=== PATIENT | male | born 1955 | race Caucasian/White ===

== ENCOUNTER 2019-12-03 10:01 | Outpatient (CLI) | payer OTHER, SELFPAY ==
--- NOTE | ~2019-12-03 | CT_ITS ---
EXAMINATION:CT lung screening DATE: 12/03/2019 10:25 INDICATION: Personal history of nicotine dependence. Smoker who quit 13 years ago with 37 pack year h istory. TECHNIQUE: Computed tomography (CT) of the chest was performed without intravenous contrast. Automate d exposure control and iterative reconstruction technique were employed. The dose-length product (DLP ) was 164.22 mGy-cm. COMPARISON: Chest CT 10/16/2018 FINDINGS: There is mild emphysema. There are scattered areas of mild scarring involving all lobes. Th ere is a 3 mm nodule at left major fissure without change. No bronchiectasis or honeycombing. No pleu ral effusion. The heart size is normal. There are coronary artery calcifications. No pericardial effu candice. Calcifications in the liver and spleen are consistent with old granulomatous disease. There is a gallstone in the gallbladder, which is normal in size. Partially visualized is a 7.2 cm cyst in lef t kidney. There is severe cervical spondylosis and moderate thoracic spondylosis. There is mild chron ic anterior wedging of multiple lower thoracic vertebral bodies. IMPRESSION: 1. Lung-RADS category 2: Benign appearance or behavior. Continue annual screening with noncontrast lo w-dose chest CT in 12 months. Reviewed, dictated and finalized at location A. IMPRESSION: 1. Lung-RADS category 2: Benign appearance or behavior. Continue annual screeni ng with noncontrast low-dose chest CT in 12 months.
== END 2019-12-03 10:02 | disposition home or self-care (01) ==
LOC: ANHIMG 10:04
PROVIDERS: PCP Emergency Medicine; Visit Provider Emergency Medicine
DX: Z12.2 Encounter for screening for malignant neoplasm of respiratory organs (principal); Z87.891 Personal history of nicotine dependence
CPT/HCPCS: G0297

== ENCOUNTER 2021-01-12 16:05 | Outpatient (CLI) | payer OTHER, SELFPAY ==
--- NOTE | ~2021-01-12 | CT_ITS ---
EXAMINATION: CT lung screening DATE: 01/12/2021 16:34 INDICATION: Personal history of nicotine dependence, prior smoker with 37 pack year history TECHNIQUE: Computed tomography (CT) of the chest was performed without intravenous contrast. The dose -length product (DLP) was 139.46 mGy-cm. Automated exposure control and iterative reconstruction tech [employer] C were employed. COMPARISON: 12/03/2019 FINDINGS: There is mild emphysema. Again noted is a stable triangle shaped nodule measuring 3 mm in a ssociation with the left major fissure, most consistent with a fissural lymph node. No new pulmonary nodules are identified. There are areas of scarring and atelectasis throughout the lungs. No new foca l airspace opacity is present. There is no pleural effusion or pneumothorax. No pathologically enlarg ed thoracic lymph nodes are identified. The heart size is normal. Calcified coronary artery atheroscl erosis is noted. Stones are present in the nondistended gallbladder. There is a partially imaged cyst of the left kidney. Punctate calcifications in an otherwise normal spleen likely represent healed gr anulomatous disease. There is moderate thoracic spondylosis. IMPRESSION: 1. Lung-RADS category 2: Benign appearance or behavior. Continue annual screening with noncontrast lo w-dose chest CT in 12 months. Reviewed, dictated and finalized at location B. IMPRESSION: 1. Lung-RADS category 2: Benign appearance or behavior. Continue annual screeni ng with noncontrast low-dose chest CT in 12 months.
== END 2021-01-12 16:06 | disposition home or self-care (01) ==
LOC: ANHIMG 16:07
PROVIDERS: PCP Emergency Medicine; Visit Provider Emergency Medicine
DX: Z12.2 Encounter for screening for malignant neoplasm of respiratory organs (principal); Z87.891 Personal history of nicotine dependence
CPT/HCPCS: 71271

== ENCOUNTER 2021-03-22 01:46 | Day surgery (SDC) | payer OTHER, SELFPAY ==
[2021-03-10 11:43] VITALS: BMI 27.0
[2021-03-22 06:19] VITALS: BP 109/77; PULSE 73; RESP 18; TEMP 36.2; O2SAT 99
[2021-03-22] MEDS: LACTATED RINGERS 1,000 ML 150 ML IV CONT (06:21)
--- NOTE | 2021-03-22 07:22 | WPDANESEPPF ---
Anes - Initial Pre Proc Eval Procedure: Operation Date: 03/22/21 07:30 Proposed Procedures p Screening Colonoscopy - Hiro Perry MD Date/Time: 03/22/21 07:22 Surgeon: Hiro Perry MD Pre Op Diagnosis: hx of colon polyps Patient Data Age: 65 Gender: M Height: 1.8 m Weight: 91.3 kg Last Vital Signs Temp 97.1 F L 03/22/21 06:19 Pulse 73 03/22/21 06:19 Resp 18 03/22/21 06:19 BP 109/77 03/22/21 06:19 Pulse Ox 99 03/22/21 06:19 Allergies Allergy/AdvReac Type Severity Reaction Status Date / Time iodine Allergy Intermediate Hives Verified 03/22/21 06:18 Home Medications Medication Instructions Recorded Confirmed Type allopurinol 100 mg PO DAILY 03/10/21 03/22/21 History amlodipine 10 mg PO DAILY 03/10/21 03/22/21 History atorvastatin 20 mg PO DAILY 03/10/21 03/22/21 History hydrocodone-acetaminophen 1 tablet PO PRN PRN 03/10/21 03/22/21 History lisinopril 20 mg PO DAILY 03/10/21 03/22/21 History metoprolol tartrate 100 mg PO DAILY 03/10/21 03/22/21 History temazepam 15 mg PO DAILY 03/10/21 03/22/21 History Patient hx anesthesia problems: none Family hx anesthesia problems: none Results Review: All pre-operative results and documents have been reviewed as part of the pre-operative evaluation. [facility] Past Medical History Medical History (Updated 03/22/21 @ 07:16 by Donovan Browning MD) Hypertension Family History Family History (Updated 11/13/18 @ 09:05 by DOCTOR UNKNOWN) Mother Hypertension Sibling Patient's brother is in good health Social History Social History Smoking status: Never smoker Alcohol intake: current Substance use type: does not use Living arrangements: with family Spiritual care concerns: No Anes - Eval Final PreProcedure Day of Procedure 03/22/21 07:22 Patient weight: overweight Heart: regular rate and rhythm Lungs: clear to auscultation Airway: Mallampati scale class II Neurological: alert and oriented Last oral intake: >/= 8 hours ASA classification: II Emergent: no Anesthetic plan: proceed Anesthesia type and monitoring: general GIVS and standard monitoring Results Review: All pre-operative results and documents have been reviewed as part of the pre-operative evaluation. Informed Consent: The patient's anesthetic plan and its attendant risks and benefits were discussed with the patient/family/POA. Questions were solicited and answers provided to the satisfaction of the patient/family/POA.
--- NOTE | 2021-03-22 07:32 | PM.HPGS ---
History of Present Illness History of Present Illness Consent: Risks, benefits, and alternatives have been discussed and questions answered. Patient agrees to proceed with procedure. Chief complaint: hx of colon polyps Narrative: Steven Dennis is a 65 year old male with colon polyps 2017 Review of Systems Constitutional: Constitutional: Denies headache(s) and Denies weakness Eyes: Eyes: Denies blurry vision ENT: Reports Normal hearing present, Denies headache(s) and Denies neck pain Cardiovascular: Cardiovascular: Denies chest pain and Denies dyspnea Respiratory: Respiratory: Denies dyspnea Gastrointestinal: Gastrointestinal: Reports no additional gastrointestinal complaints Genitourinary: Genitourinary: Denies dysuria Musculoskeletal: Musculoskeletal: Denies neck pain Integumentary/Breasts: Skin/Breast: Denies dry skin Neurologic: Reports Normal hearing present, Denies headache(s) and Denies weakness Psychiatric: Psychiatric: Denies anxiety Endocrine: Endocrine: Denies change in body appearance Hematologic/Lymphatic: Hematologic/Lymphatic: Denies easy bleeding Allergic/Immunologic: Allergic/Immunologic: Denies urticaria PMF Past Medical History Medical History (Updated 03/22/21 @ 07:33 by Hiro Perry MD) Adenomatous colon polyp Hypertension Family History Family History (Updated 11/13/18 @ 09:05 by DOCTOR UNKNOWN) Mother Hypertension Sibling Patient's brother is in good health Social History Social History Smoking status: Never smoker Alcohol intake: current Substance use type: does not use Living arrangements: with family Spiritual care concerns: No Meds Home Medications and Allergies Home Medications Medication Instructions Recorded Confirmed Type allopurinol 100 mg PO DAILY 03/10/21 03/22/21 History amlodipine 10 mg PO DAILY 03/10/21 03/22/21 History atorvastatin 20 mg PO DAILY 03/10/21 03/22/21 History hydrocodone-acetaminophen 1 tablet PO PRN PRN 03/10/21 03/22/21 History lisinopril 20 mg PO DAILY 03/10/21 03/22/21 History metoprolol tartrate 100 mg PO DAILY 03/10/21 03/22/21 History temazepam 15 mg PO DAILY 03/10/21 03/22/21 History Allergies Allergy/AdvReac Type Severity Reaction Status Date / Time iodine Allergy Intermediate Hives Verified 03/22/21 06:18 Vital Signs Vital Signs - 24 hr 03/22/21 06:19 Temperature 97.1 F L Pulse Rate 73 Respiratory Rate 18 Blood Pressure 109/77 Pulse Oximetry 99 Exam Const: General: comfortable and no acute distress HENMT: General nose exam: Normal nares present Eyes: General: appearance normal, both eyes and all related structures Neck: Neck: no JVD Resp: Auscultation: clear to auscultation bilaterally Cardio: Rate: regular rate Rhythm: regular rhythm GI: Inspection: non-distended GI Palp: Yes Soft to palpation Skin: General skin exam: normal color Neuro: General: gait normal Speech: normal speech Extrem: General: normal to inspection Psych: Mental Status: mental status grossly normal Assessment and Plan Assessment and plan (1) Adenomatous colon polyp: Code(s): D12.6 - Benign neoplasm of colon, unspecified Status: Acute Assessment and Plan: colonoscopy
[2021-03-22 07:54] VITALS: BP 73/48; PULSE 62; RESP 18; O2SAT 100
[2021-03-22 08:04] VITALS: BP 72/47; PULSE 65; RESP 18; O2SAT 100
[2021-03-22 08:14] VITALS: BP 90/59; PULSE 61; RESP 20; O2SAT 100
[2021-03-22 08:30] VITALS: BP 101/57
== END 2021-03-22 08:33 | disposition home or self-care (01) ==
PROVIDERS: PCP Emergency Medicine; Visit Provider Internal Medicine Gastroenterology
PROC: 0DJD8ZZ Inspection of Lower Intestinal Tract, Via Natural or Artificial Opening Endoscopic (ICD-10-PCS; CPT 45378; principal; 2021-03-22 07:30)
DX: Z12.11 Encounter for screening for malignant neoplasm of colon (principal); D12.4 Benign neoplasm of descending colon; K63.5 Polyp of colon; K57.30 Diverticulosis of large intestine without perforation or abscess without bleeding; K64.8 Other hemorrhoids; K62.89 Other specified diseases of anus and rectum; Z98.0 Intestinal bypass and anastomosis status; Z90.49 Acquired absence of other specified parts of digestive tract; I10 Essential (primary) hypertension
CPT/HCPCS: 45385; 88305; J2704; J7120